=== PATIENT | male | born 1970 | race African-American/Black ===

== ENCOUNTER 2024-03-29 16:19 | Emergency (ER) | payer BC, OTHER ==
[~2024-03-29] VITALS: Ht 185.4 cm; Wt 110.0 kg
[2024-03-29 16:21] VITALS: BP 171/102; PULSE 98; RESP 16; TEMP 98.2; O2SAT 96
== END 2024-03-29 18:55 | disposition left against medical advice (07) ==
LOC: ER 16:19
DX: M54.50 Low back pain, unspecified (principal); Z53.21 Procedure and treatment not carried out due to patient leaving prior to being seen by health care provider